=== PATIENT | male | born 1960 ===

== ENCOUNTER 2017-05-10 12:07 | Outpatient (CLI) | payer BC ==
--- NOTE | 2017-05-10 14:14 | XRay Report ---
ROUTINE CHEST, TWO VIEWS: HISTORY: Wheezing. The trachea, heart, mediastinal contour, lung cox and bony thorax are unremarkable. IMPRESSION: Unremarkable chest x-ray.
== END 2017-05-10 12:08 | disposition home or self-care (01) ==
LOC: SPVIMAG 12:07
PROVIDERS: ATTEND Internal Medicine
DX: R06.2 Wheezing (principal)
CPT/HCPCS: 71020